=== PATIENT | female | born 1985 | race Two or more races ===

== ENCOUNTER → 2019-08-26 | Outpatient (CLI) | payer OTHER | END | disposition home or self-care (01) | LOC: PRENATAL 13:45 | DX: O35.0XX1 Maternal care for (suspected) central nervous system malformation in fetus, fetus 1 (principal); O26.843 Uterine size-date discrepancy, third trimester; O36.8193 Decreased fetal movements, unspecified trimester, fetus 3 ==

== ENCOUNTER 2019-09-01 13:00 | Inpatient (IN) | payer OTHER ==
[~2019-09-01] VITALS: Ht 160 cm; Wt 66.7 kg
[2019-09-11] MEDS ORDERED: PRENATAL TABLE1 EAC1 PO (05:30)
== END 2019-09-13 13:18 | disposition home or self-care (01) | DRG 768 ==
LOC: LDR 09-11 05:07 → SURG-SUITE 09-11 14:56 → OB/GYN 09-19 13:00
PROVIDERS: ADMIT Obstetrics & Gynecology
PROC: 10E0XZZ Delivery of Products of Conception, External Approach (ICD-10-PCS; principal; 2019-09-11)
PROC: 0DQR0ZZ Repair Anal Sphincter, Open Approach (ICD-10-PCS; 2019-09-11)
PROC: 0W8NXZZ Division of Female Perineum, External Approach (ICD-10-PCS; 2019-09-11)
PROC: 4A1HXCZ Monitoring of Products of Conception, Cardiac Rate, External Approach (ICD-10-PCS; 2019-09-11)
DX: O70.21 Third degree perineal laceration during delivery, IIIa (principal); Z37.0 Single live birth; Z3A.38 38 weeks gestation of pregnancy